=== PATIENT | male | born 1980 | race Caucasian/White ===

== ENCOUNTER 2023-03-15 16:35 | Outpatient (CLI) | payer OTHER, SELFPAY ==
--- NOTE | ~2023-03-15 | XR_ITS ---
XR chest 2V DATE: 03/15/2023 17:05 INDICATION: Late and tuberculosis TECHNIQUE: PA and lateral views COMPARISON: None FINDINGS: Normal heart size. No hilar or mediastinal enlargement. No pulmonary infiltrate or consolid ation, pleural effusion or pulmonary mass congestion or pneumothorax. Included skeletal structures ar e unremarkable. Mild degenerative spurring of the thoracic spine. Minimal thoracic levoscoliosis. IMPRESSION: No active cardiac pulmonary disease Reviewed, dictated and finalized at location A.
== END 2023-03-15 16:36 | disposition home or self-care (01) ==
PROVIDERS: PCP Internal Medicine; Visit Provider Internal Medicine
DX: R76.11 Nonspecific reaction to tuberculin skin test without active tuberculosis (principal)
CPT/HCPCS: 71046